=== PATIENT | female | born 1980 | race Hispanic/Latino ===

== ENCOUNTER 2022-09-16 16:38 | Outpatient (CLI) | payer OTHER | END 2022-09-16 16:39 | disposition home or self-care (01) | LOC: CSHLAB 16:38 | PROVIDERS: ATTEND Obstetrics & Gynecology | DX: Z01.812 Encounter for preprocedural laboratory examination (principal) | CPT/HCPCS: 84703; 85027; 86850; 86900; 86901 ==

== ENCOUNTER 2022-09-17 11:24 | Day surgery (SDC) | payer OTHER ==
[2022-09-13 10:00] VITALS: BMI 20.2
[2022-09-16 17:28] LABS: Mean Corpuscular HGB CONC 33.9 g/dL (32.0-36.0); Mean Corpuscular Hemoglobin 31.4 pg (27.0-33.0); Mean Corpuscular Volume 92.8 fl (81.6-98.3); Mean Platelet Volume 10.2 fl (7.4-10.4); Platelet Count 298 10x3/uL (150-450); RBC Distribution Width 13.2 % (11.5-14.5); Red Blood Cell (RBC) Count 4.14 10x6/uL (3.90-5.03); White Blood Cell (WBC) Count 9.7 10x3/uL (3.5-10.5)
[2022-09-16 17:41] LABS: BHCG - Serum Negative (NEGATIVE); Pregs Control Background? CLEAR/WHITE (CLR/WHITE); Pregs Control Bar Appear? YES (CONTROL BAR)
[2022-09-17] MEDS ORDERED: CeleCOXIB 100 MG CAP ONE (11:48)
[2022-09-17] MEDS ORDERED: Famotidine/PF 20 mg/2ml Vial ONE (11:49)
[2022-09-17] MEDS ORDERED: PROPOFOL 20 ML ONE (11:58)
[2022-09-17] MEDS ORDERED: Lidocaine 1% w/Epinephrine 1:100K 20 ML VIAL ONE (13:05)
[2022-09-17] MEDS ORDERED: Methylergonovine 0.2 MG/ML VIAL ONE (13:06)
[2022-09-17] MEDS ORDERED: CEFAZOLIN 2 GM VIAL ONE (13:11)
[2022-09-17] MEDS ORDERED: Fentanyl 100 MCG/2 ML VIAL ONE (13:16)
[2022-09-17] MEDS ORDERED: Dexamethasone 4 mg/ml Vial ONE (13:43)
[2022-09-17] MEDS ORDERED: Ondansetron PF 4 MG/2 ML Vial ONE (13:43)
[2022-09-17] MEDS ORDERED: Ketorolac Tromethamine 30 MG/ML VIAL ONE (13:43)
[2022-09-17] MEDS ORDERED: PHENYLEPHRINE-NS 100 MCG/ML 10 ML SYRINGE ONE (13:57)
[2022-09-17] MEDS ORDERED: Meperidine HCl/PF 25 MG/ML VIAL ONE (14:16)
== END 2022-09-17 15:50 | disposition home or self-care (01) ==
LOC: CSHSDC 11:24
PROVIDERS: ATTEND Obstetrics & Gynecology
PROC: 0UBC7ZZ Excision of Cervix, Via Natural or Artificial Opening (ICD-10-PCS; principal; 2022-09-17)
DX: D06.0 Carcinoma in situ of endocervix (principal); Z90.49 Acquired absence of other specified parts of digestive tract
CPT/HCPCS: 84703; 85027; 86850; 86900; 86901; 88305; 88307; 88341; 88342; C1713; J1100; J1885; J2175; J2210; J2405; J2704; J3010; S0028

== ENCOUNTER 2022-11-05 10:38 | Day surgery (SDC) | payer OTHER ==
[2022-11-04 15:54] LABS: Hemoglobin 12.4 g/dL (12.0-15.5); Mean Corpuscular HGB CONC 32.2 g/dL (32.0-36.0); Mean Corpuscular Hemoglobin 30.2 pg (27.0-33.0); Mean Corpuscular Volume 93.9 fl (81.6-98.3); Platelet Count 345 10x3/uL (150-450); RBC Distribution Width 12.9 % (11.5-14.5); White Blood Cell (WBC) Count 9.4 10x3/uL (3.5-10.5)
[2022-11-04 16:39] LABS: BHCG - Serum Negative (NEGATIVE); Pregs Control Background? CLEAR/WHITE (CLR/WHITE); Pregs Control Bar Appear? YES (CONTROL BAR)
[2022-11-05] MEDS ORDERED: CeleCOXIB 100 MG CAP ONE (11:13)
[2022-11-05] MEDS ORDERED: Famotidine/PF 20 mg/2ml Vial ONE (11:13)
[2022-11-05] MEDS ORDERED: Gabapentin 300 MG CAP ONE (11:13)
[2022-11-05] MEDS ORDERED: Bupivacaine HCl 0.5%/Epinephrine 1:200,000/PF 30 ml Vial ONE (12:33)
[2022-11-05] MEDS ORDERED: HYDROmorphone 0.5 MG/0.5 ML SYRINGE ONE (12:37)
[2022-11-05] MEDS ORDERED: Propofol 1,000 MG/100 ML VIAL IV ONE (12:43)
[2022-11-05] MEDS ORDERED: SUGAMMADEX SODIUM 200 MG/2 ML VIAL ONE (12:43)
[2022-11-05] MEDS ORDERED: CEFAZOLIN 2 GM VIAL ONE (12:47)
[2022-11-05] MEDS ORDERED: Dexamethasone 4 mg/ml Vial ONE (12:49)
[2022-11-05] MEDS ORDERED: Ondansetron PF 4 MG/2 ML Vial ONE (12:49)
[2022-11-05] MEDS ORDERED: Lidocaine 1% PF 5 ML VIAL ONE (12:49)
[2022-11-05] MEDS ORDERED: Ketorolac Tromethamine 30 MG/ML VIAL ONE (12:49)
[2022-11-05] MEDS ORDERED: Rocuronium Bromide 10 MG/ML (10ML VIAL) ONE (12:49)
[2022-11-05] MEDS ORDERED: Midazolam HCl 2 mg/2 ml Vial ONE (12:49)
[2022-11-05] MEDS ORDERED: Esmolol 100 MG/10 ML VIAL ONE (12:51)
[2022-11-05] MEDS ORDERED: ePHEDrine Sulfate 50 MG/10 ML VIAL ONE (13:21)
[2022-11-05] MEDS ORDERED: diphenhydrAMINE 50 MG/ML VIAL ONE (15:04)
[2022-11-05] MEDS ORDERED: HYDROcodone/Acetaminophen 5/325 mg Tablet PO PRN ×2 (15:08)
[2022-11-05] MEDS ORDERED: traMADol HCl 50 MG TAB PO PRN (15:08)
[2022-11-05] MEDS ORDERED: Ondansetron PF 4 MG/2 ML Vial IVP PRN (15:08)
[2022-11-05] MEDS ORDERED: Fentanyl 100 MCG/2 ML VIAL SLOW IVP PRN (15:08)
[2022-11-05] MEDS ORDERED: diphenhydrAMINE 25 MG CAP PO PRN (15:08)
[2022-11-05] MEDS ORDERED: Simethicone Chewable 80 MG TAB PO PRN (15:08)
[2022-11-05] MEDS ORDERED: Bisacodyl 10 MG SUPP PR PRN (15:08)
[2022-11-05] MEDS ORDERED: EPINEPHrine 1 mg/ml MDV (1ml Charge) IM PRN (16:59)
[2022-11-05] MEDS: Ketorolac Tromethamine 30 MG/ML VIAL IVP SCH ×2 (18:14→23:06)
[2022-11-05] MEDS: Sodium Chloride 0.9% 1,000 ML IV SCH ×2 (18:15→21:51)
[2022-11-05] MEDS: methylPREDNISolone Sod Succ 40 MG VIAL IVP SCH ×2 (18:15→23:06)
[2022-11-05 19:16] LABS: Hemoglobin 11.2 g/dL (12.0-15.5); Platelet Count 286 10x3/uL (150-450)
[2022-11-05] MEDS: Famotidine/PF 20 mg/2ml Vial SLOW IVP SCH (20:17)
[2022-11-05] MEDS ORDERED: FLU VACC QS2022-23(6MO UP)/PF 60 MCG/0.5 ML SYRINGE IM ONE (21:15)
[2022-11-06] MEDS: Ipratropium/Albuterol 3 ML NEB NEB SCH ×3 (00:03→07:00)
[2022-11-06 04:03] LABS: Hemoglobin 11.1 g/dL (12.0-15.5); Mean Corpuscular HGB CONC 32.4 g/dL (32.0-36.0); Mean Corpuscular Hemoglobin 30.3 pg (27.0-33.0); Mean Corpuscular Volume 93.7 fl (81.6-98.3); Mean Platelet Volume 10.2 fl (7.4-10.4); Platelet Count 264 10x3/uL (150-450); RBC Distribution Width 12.8 % (11.5-14.5); Red Blood Cell (RBC) Count 3.66 10x6/uL (3.90-5.03); White Blood Cell (WBC) Count 18.3 10x3/uL (3.5-10.5)
[2022-11-06 04:21] LABS: ALT (SGPT) 14 U/L (8-55); AST (SGOT) 27 U/L (5-34); Albumin 3.3 g/dL (3.5-5.0); Alkaline Phosphatase 44 U/L (40-110); Anion Gap 13 mmol/L (10-20); BUN (Urea Nitrogen) 7 mg/dL (7.0-18.7); Bilirubin, Total 0.4 mg/dL (0.2-1.2); Calc. Creatinine Clearance 95 mL/min (70-130); Calcium 8.3 mg/dL (7.8-10.44); Carbon Dioxide 20 mmol/L (22-29); Chloride 109 mmol/L (98-107); Estimated GFR 111; Globulin 2.8 g/dL (2.4-3.5); Glucose 158 mg/dL (70-105); Potassium 4.1 mmol/L (3.5-5.1); Protein, Total 6.1 g/dL (6.0-8.3); Sodium 138 mmol/L (136-145)
[2022-11-06] MEDS: Ketorolac Tromethamine 30 MG/ML VIAL IVP SCH ×2 (05:05→11:34)
[2022-11-06] MEDS: methylPREDNISolone Sod Succ 40 MG VIAL IVP SCH (05:06)
[2022-11-06 05:52] VITALS: BMI 23.4
[2022-11-06] MEDS ORDERED: Sodium Chloride 0.9% 1,000 ML IV SCH (07:51)
[2022-11-06] MEDS: Famotidine/PF 20 mg/2ml Vial SLOW IVP SCH (07:52)
[2022-11-06] MEDS: Sodium Chloride 0.9% 1,000 ML IV SCH (07:52)
[2022-11-06 11:59] VITALS: BP 90/52; TEMP 98.4
[2022-11-11] MEDS ORDERED: Ibuprofen 800 MG TAB PO SCH (06:00)
== END 2022-11-06 13:50 | disposition home or self-care (01) ==
LOC: CSHSDC 10:38 → CSHICU 17:26 → UNDOADMIN 17:26 → CSHICU 17:52 → CSHSDC 11-06 13:50 → UNDODISIN 11-06 13:50
PROVIDERS: ATTEND Obstetrics & Gynecology
PROC: 0UT74ZZ Resection of Bilateral Fallopian Tubes, Percutaneous Endoscopic Approach (ICD-10-PCS; principal; 2022-11-05)
PROC: 0UT94ZZ Resection of Uterus, Percutaneous Endoscopic Approach (ICD-10-PCS; principal; 2022-11-05)
DX: D06.9 Carcinoma in situ of cervix, unspecified (principal); N80.03 Adenomyosis of the uterus; N83.8 Other noninflammatory disorders of ovary, fallopian tube and broad ligament; N83.202 Unspecified ovarian cyst, left side; J96.01 Acute respiratory failure with hypoxia; T78.2XXA Anaphylactic shock, unspecified, initial encounter; J98.01 Acute bronchospasm; Z90.49 Acquired absence of other specified parts of digestive tract
CPT/HCPCS: 36415; 71045; 80053; 84703; 85014; 85018; 85027; 85049; 86850; 86900; 86901; 88307; 94640; 94760; 94762; J1100; J1170; J1200; J1885; J2250; J2405; J2704; J2920; J7050; J7620; Q9968; S0028